=== PATIENT | female | born 1965 | race Caucasian/White ===

== ENCOUNTER → 2018-02-10 | Outpatient (CLI) | payer BC ==
[~2018-02-10] MED LIST: OMEPRAZOLE20 MG PO; ZOFRAN ODT4 MG PO
== END | disposition home or self-care (01) ==
LOC: CDC 09:04
DX: Z01.810 Encounter for preprocedural cardiovascular examination (principal); M25.531 Pain in right wrist; M65.4 Radial styloid tenosynovitis [de Quervain]; M67.431 Ganglion, right wrist; R94.31 Abnormal electrocardiogram [ECG] [EKG]
CPT/HCPCS: 93000